=== PATIENT | male | born 1985 | race Two or more races ===

== ENCOUNTER 2017-08-08 17:19 | Emergency (ER) | payer BC ==
--- NOTE | 2017-08-08 18:08 | ED ---
GI Bleed HPI - General Chief complaint: GI Bleed Stated complaint: GI bleed Time Seen by Provider: 08/08/17 17:34 Source: patient Mode of arrival: ambulatory Limitations: no limitations - History of Present Illness Initial comments: 31-year-old male patient presents the emergency department today for evaluation after having several episodes of vomiting what he believes to be blood last evening. Patient states he was vomiting every half an hour. Patient states that his vomit was dark red to brown in color with what appeared to be black mucus present. Patient states he is having upper abdominal pain today. Patient states he was having sweats with the episodes of vomiting. He is unsure if he's had a fever. Denies any diarrhea, states he has been somewhat constipated. Denies any hematochezia or melena. Patient denies any alcohol or drug use. States he has been having "heartburn" for the last 3 weeks. Patient states it has been quite severe and radiating up into his chest. Patient states that his diet has been bad recently including a lot of greasy foods. Denies any recent travel or sick contacts. Patient denies any recent rash, shortness breath, chest pain, back pain, numbness, tingling, dizziness, weakness , hematuria, dysuria, urinary urgency, urinary frequency, headache, visual changes, or any other complaints. - Related Data Previous Rx's Medication Instructions Recorded Omeprazole [PriLOSEC] 20 mg PO AC-BID #60 cap 08/08/17 Allergies Allergy/AdvReac Type Severity Reaction Status Date / Time No Known Allergies Allergy Verified 08/08/17 17:23 Review of Systems ROS Statement: Those systems with pertinent positive or pertinent negative responses have been documented in the HPI. ROS Other: All systems not noted in ROS Statement are negative. Past Medical History Past Medical History: No Reported History History of Any Multi-Drug Resistant Organisms: None Reported Past Surgical History: No Surgical Hx Reported Past Psychological History: ADD/ADHD, Anxiety Smoking Status: Never smoker Past Alcohol Use History: None Reported Past Drug Use History: None Reported General Exam Limitations: no limitations General appearance: alert, in no apparent distress, other (This is a well- developed, well-nourished adult male patient in no acute distress. Vital signs upon presentation are temperature 99.2F, pulse 94, respirations 20, blood pressure 128/87, pulse ox 100% on room air.) Eye exam: Present: normal appearance, PERRL, EOMI. Absent: scleral icterus, conjunctival injection, periorbital swelling ENT exam: Present: normal exam, normal oropharynx, mucous membranes moist Respiratory exam: Present: normal lung sounds bilaterally. Absent: respiratory distress, wheezes, rales, rhonchi, stridor Cardiovascular Exam: Present: regular rate, normal rhythm, normal heart sounds. Absent: systolic murmur, diastolic murmur, rubs, gallop, clicks GI/Abdominal exam: Present: soft, tenderness (Right upper quadrant and midepigastric tenderness.), normal bowel sounds. Absent: distended, guarding, rebound, rigid Back exam: Present: normal inspection. Absent: CVA tenderness (R), CVA tenderness (L) Neurological exam: Present: alert, oriented X3, CN II-XII intact Psychiatric exam: Present: normal affect, normal mood Skin exam: Present: warm, dry, intact, normal color. Absent: rash Course Vital Signs 08/08/17 17:21 Temperature 99.2 F Pulse Rate 94 Respiratory 20 Rate Blood Pressure 128/87 O2 Sat by Pulse 100 Oximetry Medical Decision Making - Medical Decision Making 31-year-old male patient presents to the emergency department today for evaluation of vomiting and abdominal pain. Patient was concerned that is possibly vomiting blood. Physical examination did reveal midepigastric tenderness, right upper quadrant tenderness. Vital signs are stable. I did want to perform labs to evaluate for infection, pancreatitis, possible gallbladder dysfunction as well as KUB x-ray to evaluate for any free air for concern of peptic ulcer disease. Patient was very concerned due to his high deductible on his insurance. States that he does not want to have any testing performed today. I did discuss the risks of not having these appropriate tests performed. He verbalizes understanding and still did not want to have the testing performed. We will give him a prescription for Prilosec. He is instructed to take this as directed. Instructed to follow-up with his primary care physician for recheck as soon as possible. We did discuss return parameters in detail. He verbalizes understanding and agrees with this plan. Disposition Clinical Impression: Abdominal pain Disposition: HOME SELF-CARE Condition: Good Instructions: Peptic Ulcer (ED), Diet for Stomach Ulcers and Gastritis (ED), Abdominal Pain (ED) Additional Instructions: Take medications as directed. Increase fluids. Altered diet according to discharge instructions. Follow-up with your primary care physician for recheck as soon as possible. Return here immediately for any new, worsening, or concerning symptoms. Prescriptions: Omeprazole [PriLOSEC] 20 mg PO AC-BID #60 cap Is patient prescribed a controlled substance at d/c from ED?: No Referrals: Fam Francisco MD [Primary Care Provider] - 1-2 days Time of Disposition: 18:18
[2017-08-08] MEDS ORDERED: PANTOPRAZOLE 40 MG TABLET PO STA (18:17)
[2017-08-08 18:42] VITALS: BP 112/60; PULSE 70; RESP 18; TEMP 98.5
== END 2017-08-08 18:42 | disposition home or self-care (01) ==
LOC: EC 17:19
DX: R10.11 Right upper quadrant pain (principal); R10.13 Epigastric pain; K92.0 Hematemesis
CPT/HCPCS: 99284

== ENCOUNTER 2020-11-12 12:59 | Emergency (ER) | payer BC, OTHER ==
[2020-11-12 13:53] VITALS: BP 155/88; PULSE 78; RESP 20; TEMP 98.6
[2020-11-12] MEDS ORDERED: ACET/COD 300 MG/30 MG STARTER PACK 6 TAB BTL PO STA (13:53)
--- NOTE | 2020-11-12 13:54 | ED ---
General Adult HPI - General Stated complaint: arm pain Time Seen by Provider: 11/12/20 13:20 Source: patient, RN notes reviewed Mode of arrival: ambulatory Limitations: no limitations - History of Present Illness Initial comments: 35-year-old male presents emergency Department chief complaint of right forearm pain. Patient states started after working out. Patient states that he is having increasing pain especially with movement no associated weakness no discoloration no definite swelling. Patient states that it hurts with certain movements better at rest - Related Data Previous Rx's Medication Instructions Recorded Omeprazole [PriLOSEC] 20 mg PO AC-BID #60 cap 08/08/17 Ibuprofen [Motrin] 800 mg PO Q6HR #30 tab 11/12/20 predniSONE 50 mg PO DAILY #5 tab 11/12/20 Allergies Allergy/AdvReac Type Severity Reaction Status Date / Time No Known Allergies Allergy Verified 11/12/20 13:53 Review of Systems ROS Statement: Those systems with pertinent positive or pertinent negative responses have been documented in the HPI. ROS Other: All systems not noted in ROS Statement are negative. Past Medical History Past Medical History: No Reported History History of Any Multi-Drug Resistant Organisms: None Reported Past Surgical History: No Surgical Hx Reported Past Psychological History: ADD/ADHD, Anxiety Past Alcohol Use History: None Reported Past Drug Use History: None Reported General Exam Limitations: no limitations General appearance: alert, in no apparent distress Head exam: Present: atraumatic, normocephalic, normal inspection Eye exam: Present: normal appearance, PERRL, EOMI. Absent: scleral icterus, conjunctival injection, periorbital swelling Respiratory exam: Present: normal lung sounds bilaterally. Absent: respiratory distress, wheezes, rales, rhonchi, stridor Cardiovascular Exam: Present: regular rate, normal rhythm, normal heart sounds. Absent: systolic murmur, diastolic murmur, rubs, gallop, clicks Extremities exam: Present: other (right forearm there is tenderness there is pain with wrist flexion, pronation, neurovascular intact, cap refill less than 2 seconds radial pulses equal bilaterally) Course Vital Signs 11/12/20 13:49 Temperature 98.6 F Pulse Rate 78 Respiratory 20 Rate Blood Pressure 155/88 O2 Sat by Pulse 99 Oximetry Medical Decision Making - Medical Decision Making patient has a right forearm strain, flexor muscle strain. Patient discharged in stable condition. Disposition Clinical Impression: Strain of right forearm, Injury of flexor muscle of finger at forearm level Disposition: HOME SELF-CARE Condition: Stable Instructions (If sedation given, give patient instructions): Muscle Strain (ED) Additional Instructions: Please return to the Emergency Department if symptoms worsen or any other concerns. Prescriptions: Ibuprofen [Motrin] 800 mg PO Q6HR #30 tab predniSONE 50 mg PO DAILY #5 tab Is patient prescribed a controlled substance at d/c from ED?: No Referrals: Fam Francisco MD [Primary Care Provider] - 1-2 days Bhargav Rosenberg MD [STAFF PHYSICIAN] - 1-2 days Time of Disposition: 13:54
== END 2020-11-12 14:18 | disposition home or self-care (01) ==
LOC: EC 12:59
DX: S56.109 Unspecified injury of flexor muscle, fascia and tendon of unspecified finger at forearm level (principal); F41.9 Anxiety disorder, unspecified; F90.9 Attention-deficit hyperactivity disorder, unspecified type; X50.0XXA Overexertion from strenuous movement or load, initial encounter
CPT/HCPCS: 99283

== ENCOUNTER → 2022-07-20 | Outpatient (CLI) | payer OTHER ==
[2022-07-20 23:26] LABS: Urine Alcohol Negative (Negative); Urine Barbiturate Negative (Negative); Urine Cocaine Negative (Negative); Urine Methadone Negative (Negative); Urine Opiates Negative (Negative); Urine Phencyclidine Negative (Negative)
== END | disposition home or self-care (01) ==
LOC: LABWHC1 13:55
PROVIDERS: ATTEND Psychiatry & Neurology Psychiatry
DX: Z79.899 Other long term (current) drug therapy (principal)
CPT/HCPCS: 36415; 80306

== ENCOUNTER → 2023-02-16 | Outpatient (CLI) | payer OTHER | END | disposition home or self-care (01) | LOC: LABWHC1 15:10 | DX: Z53.9 Procedure and treatment not carried out, unspecified reason (principal) ==

== ENCOUNTER 2023-08-10 14:47 | Emergency (ER) | payer OTHER ==
[2023-08-10 15:09] VITALS: TEMP 98.5
--- NOTE | 2023-08-10 16:15 | ED ---
Nausea/Vomiting/Diarrhea HPI - General Chief complaint: Nausea/Vomiting/Diarrhea Stated complaint: Diarrhea,Abd Pain Time Seen by Provider: 08/10/23 15:42 Source: patient, RN notes reviewed, old records reviewed Mode of arrival: ambulatory - History of Present Illness Initial comments: This is a 37 male with significant dehydration nausea vomiting and diarrhea. Patient has symptoms persistent for almost a week now appears persistent here in the ER. No chest pain no abdominal pain or shortness of breath no cough or congestion no drugs or alcohol no other complaints no family was of similar complaint no blood in the stool no blood in the vomit MD complaint: nausea, vomiting, diarrhea, abdominal pain -: days(s) Associated Abdominal Pain: Yes Severity: moderate Severity scale (1-10): 6 Quality: cramping, stabbing Consistency: constant Improves with: none Worsens with: none Associated Symptoms: denies other symptoms - Related Data Previous Rx's Medication Instructions Recorded Omeprazole [PriLOSEC] 20 mg PO AC-BID #60 cap 08/08/17 Ibuprofen [Motrin] 800 mg PO Q6HR #30 tab 11/12/20 predniSONE 50 mg PO DAILY #5 tab 11/12/20 Allergies Allergy/AdvReac Type Severity Reaction Status Date / Time amoxicillin AdvReac Nausea Verified 08/10/23 15:10 Review of Systems ROS Statement: Those systems with pertinent positive or pertinent negative responses have been documented in the HPI. ROS Other: All systems not noted in ROS Statement are negative. Past Medical History Past Medical History: No Reported History History of Any Multi-Drug Resistant Organisms: None Reported Past Surgical History: No Surgical Hx Reported Past Psychological History: ADD/ADHD, Anxiety Smoking Status: Never smoker Past Alcohol Use History: None Reported Past Drug Use History: None Reported General Exam General appearance: alert, in no apparent distress Head exam: Present: atraumatic, normocephalic, normal inspection Eye exam: Present: normal appearance, PERRL, EOMI. Absent: scleral icterus, conjunctival injection, periorbital swelling ENT exam: Present: normal exam, mucous membranes moist Neck exam: Present: normal inspection. Absent: tenderness, meningismus, lymphadenopathy Respiratory exam: Present: normal lung sounds bilaterally. Absent: respiratory distress, wheezes, rales, rhonchi, stridor Cardiovascular Exam: Present: regular rate, normal rhythm, normal heart sounds. Absent: systolic murmur, diastolic murmur, rubs, gallop, clicks GI/Abdominal exam: Present: soft, normal bowel sounds. Absent: distended, tenderness, guarding, rebound, rigid Extremities exam: Present: normal inspection, full ROM, normal capillary refill. Absent: tenderness, pedal edema, joint swelling, calf tenderness Back exam: Present: normal inspection Neurological exam: Present: alert, oriented X3, CN II-XII intact Psychiatric exam: Present: normal affect, normal mood Skin exam: Present: warm, dry, intact, normal color. Absent: rash Course Vital Signs 08/10/23 08/10/23 15:06 17:41 Temperature 98.5 F Pulse Rate 85 62 Respiratory 18 16 Rate Blood Pressure 134/79 117/64 O2 Sat by Pulse 96 99 Oximetry - Reevaluation(s) Reevaluation #1: 08/10/23 17:27 Records reviewed Reevaluation #2: 08/10/23 17:28 Patient symptoms unchanged Reevaluation #3: 08/10/23 17:28 Symptoms unchanged Reevaluation #4: Was pt. sent in by a medical professional or institution (, PA, HIGHWAY TRAFFIC CONTROL TECHNICIAN, urgent care, hospital, or care home...) When possible be specific @ -no Did you speak to anyone other than the patient for history (EMS, parent, family, police, friend...)? What history was obtained from this source @ -no Did you review nursing and triage notes (agree or disagree)? Why? @ -agree Are old charts reviewed (outside hosp., previous admission, EMS record, old EKG, old radiological studies, urgent care reports/EKG's, care home records)? Report findings @ -yes Differential Diagnosis (chest pain, altered mental status, abdominal pain women, abdominal pain men, vaginal bleeding, weakness, fever, dyspnea, syncope, headache, dizziness, GI bleed, back pain, seizure, CVA, palpatations, mental health, musculoskeletal)? @ -prior EKG interpreted by me (3pts min.). @ -no X-rays interpreted by me (1pt min.). @ -no CT interpreted by me (1pt min.). @ -no U/S interpreted by me (1pt. min.). @ -no What testing was considered but not performed or refused? (CT, X-rays, U/S, labs)? Why? @ -none What meds were considered but not given or refused? Why? @ -none Did you discuss the management of the patient with other professionals (professionals i.e. , PA, HIGHWAY TRAFFIC CONTROL TECHNICIAN, lab, RT, psych nurse, social science manager, curriculum assistant, teacher, seal delivery vehicle officer, correctional case records supervisor)? Give summary @ -no Was smoking cessation discussed for >3mins.? @ -no Was critical care preformed (if so, how long)? @ -no Were there social determinants of health that impacted care today? How? (Homelessness, low income, unemployed, alcoholism, drug addiction, transportation, low edu. Level, literacy, decrease access to med. care, detention, rehab)? @ -none Was there de-escalation of care discussed even if they declined (Discuss DNR or withdrawal of care, Hospice)? DNR status @ -no What co-morbidities impacted this encounter? (DM, HTN, Smoking, COPD, CAD, Cancer, CVA, ARF, Chemo, Hep., AIDS, mental health diagnosis, sleep apnea, morbid obesity)? @ -none Was patient admitted / discharged? Hospital course, mention meds given and route, prescriptions, significant lab abnormalities, going to OR and other pert inent info. @ - 37 male will be discharged home after symptoms with nausea vomiting and diarrhea improved normal lab testing Discharge nausea vomiting Undiagnosed new problem with uncertain prognosis? @ -no Drug Therapy requiring intensive monitoring for toxicity (Heparin, Nitro, Insulin, Cardizem)? @ -no Were any procedures done? @ -no Diagnosis/symptom? @ - Acute, or Chronic, or Acute on Chronic? @ -Acute Uncomplicated (without systemic symptoms) or Complicated (systemic symptoms)? @ -Complicated Side effects of treatment? @ -no Exacerbation, Progression, or Severe Exacerbation? @ -exacerbation Poses a threat to life or bodily function? How? (Chest pain, USA, AR, pneumonia, PE, COPD, DKA, ARF, appy, cholecystitis, CVA, Diverticulitis, Homicidal, Suicidal, threat to staff... and all critical care pts) @ -no Reevaluation #5: Differential Abdominal Pain Men: Appendicitis, cholecystitis, diverticulosis, ischemic bowel, pancreatitis, hepatitis, UTI, gastroenteritis, AAA, incarcerated hernia, bowel obstruction, constipation, inflammatory bowel, hepatitis, peptic ulcer disease, splenic infarction, perforated viscus, testicular torsion, this is not meant to be an all-inclusive list Medical Decision Making - Medical Decision Making 37 male will be discharged home after symptoms with nausea vomiting and diarrhea improved normal lab testing - Lab Data Result diagrams: 08/10/23 16:30 08/10/23 16:30 Lab Results 08/10/23 08/10/23 Range/Units 16:30 16:30 WBC 4.0 (3.8-10.6) k/uL RBC 5.77 (4.30-5.90) m/uL Hgb 17.5 (13.0-17.5) gm/dL Hct 48.7 (39.0-53.0) % MCV 84.5 (80.0-100.0) fL MCH 30.3 (25.0-35.0) pg MCHC 35.9 (31.0-37.0) g/dL RDW 14.4 (11.5-15.5) % Plt Count 176 (150-450) k/uL MPV 8.3 Neutrophils % 54 % Lymphocytes % 26 % Monocytes % 10 % Eosinophils % 5 % Basophils % 1 % Neutrophils # 2.2 (1.3-7.7) k/uL Lymphocytes # 1.0 (1.0-4.8) k/uL Monocytes # 0.4 (0-1.0) k/uL Eosinophils # 0.2 (0-0.7) k/uL Basophils # 0.0 (0-0.2) k/uL Sodium 140 (137-145) mmol/L Potassium 4.0 (3.5-5.1) mmol/L Chloride 107 (98-107) mmol/L Carbon Dioxide 24 (22-30) mmol/L Anion Gap 9 mmol/L BUN 11 (9-20) mg/dL Creatinine 1.28 H (0.66-1.25) mg/dL Est GFR (CKD-EPI)AfAm 83 (>60 ml/min/1.73 sqM) Est GFR (CKD-EPI)NonAf 72 (>60 ml/min/1.73 sqM) Glucose 88 (74-99) mg/dL Calcium 9.2 (8.4-10.2) mg/dL Total Bilirubin 2.2 H (0.2-1.3) mg/dL AST 27 (17-59) U/L ALT 19 (4-49) U/L Alkaline Phosphatase 40 (38-126) U/L Total Protein 6.8 (6.3-8.2) g/dL Albumin 4.1 (3.5-5.0) g/dL Amylase 49 (30-110) U/L Lipase 158 (23-300) U/L Disposition Clinical Impression: Dehydration, Gastroenteritis Disposition: HOME SELF-CARE Condition: Good Instructions (If sedation given, give patient instructions): Acute Nausea and Vomiting (ED), Acute Diarrhea (ED) Is patient prescribed a controlled substance at d/c from ED?: No Referrals: None,Stated [Primary Care Provider] - 1-2 days Time of Disposition: 17:30
[2023-08-10] MEDS: SODIUM CHLORIDE 0.9% 500 ML 500 ML IV STA (16:29)
[2023-08-10] MEDS: SODIUM CHLORIDE 0.9% 1,000 ML IV STA (16:29)
[2023-08-10] MEDS: ONDANSETRON 4 MG/2 ML VIAL IVP STA (16:30)
[2023-08-10 17:08] LABS: Basophils % (A) 1 %; Eosinophils # (A) 0.2 k/uL (0-0.7); Eosinophils % (A) 5 %; HCT 48.7 % (39.0-53.0); HGB 17.5 gm/dL (13.0-17.5); Lymphocytes % (A) 26 %; MCH 30.3 pg (25.0-35.0); MCHC 35.9 g/dL (31.0-37.0); MCV 84.5 fL (80.0-100.0); Mean Platelet Volume 8.3; Monocytes # (A) 0.4 k/uL (0-1.0); Monocytes % (A) 10 %; Neutrophils # (A) 2.2 k/uL (1.3-7.7); Neutrophils % (A) 54 %; Platelet Count 176 k/uL (150-450); RBC 5.77 m/uL (4.30-5.90); RDW 14.4 % (11.5-15.5)
[2023-08-10 17:11] LABS: ALT 19 U/L (4-49); AST 27 U/L (17-59); African American GFR (CKD) 83 (>60 ml/min/1.73 sqM); Albumin 4.1 g/dL (3.5-5.0); Alkaline Phosphatase 40 U/L (38-126); Amylase 49 U/L (30-110); Anion Gap 9 mmol/L; Blood Urea Nitrogen 11 mg/dL (9-20); Calcium 9.2 mg/dL (8.4-10.2); Carbon Dioxide 24 mmol/L (22-30); Chloride 107 mmol/L (98-107); Glucose 88 mg/dL (74-99); Lipase 158 U/L (23-300); Non-African American GFR(CKD) 72 (>60 ml/min/1.73 sqM); Sodium 140 mmol/L (137-145); Total Bilirubin 2.2 mg/dL (0.2-1.3); Total Protein 6.8 g/dL (6.3-8.2)
[2023-08-10] MEDS: ONDANSETRON 4 MG ODT STARTER PACK 2 TAB BTL PO STA (17:35)
[2023-08-10] MEDS: DIPHENOX-ATROP STARTER PACK 8 TAB BTL PO STA (17:35)
[2023-08-10 17:43] VITALS: BP 117/64; PULSE 62; RESP 16
== END 2023-08-10 17:42 | disposition home or self-care (01) ==
LOC: EC 14:47
DX: E86.0 Dehydration (principal); K52.9 Noninfective gastroenteritis and colitis, unspecified; Z88.0 Allergy status to penicillin
CPT/HCPCS: 36415; 80053; 82150; 83690; 85025; 99284; 96374; 96361; J2405; S0119